=== PATIENT | female | born 1975 | race Caucasian/White ===

== ENCOUNTER → 2016-12-02 | Outpatient (CLI) | payer OTHER ==
--- NOTE | 2016-12-02 16:57 | RAD ---
Examination: Ultrasound kidneys history: History of renal stone. Comparison: None available Findings: The right kidney measures 12.2 x 5.1 x 1.4 cm. The left kidney measures 12.1 x 4.2 x 5.4 cm. No evidence of hydronephrosis. No obvious echogenicity identified to suggest intrarenal collecting system calculus in the bilateral kidneys. The urinary bladder is not well-distended Impression: No evidence of hydronephrosis. Unremarkable exam
--- NOTE | 2016-12-02 16:58 | RAD ---
Examination: 4 views of the skull History: History of right occipital lump pain. Fall Comparison: None available Findings No definite evidence of displaced fracture or lesion visualized on this skull radiograph. Impression: Unremarkable exam.
== END | disposition home or self-care (01) ==
LOC: US 16:29
PROVIDERS: ATTEND Psychiatry & Neurology Neurology
DX: N20.0 Calculus of kidney (principal); M89.8X9 Other specified disorders of bone, unspecified site
CPT/HCPCS: 70260; 76770

== ENCOUNTER 2017-05-05 14:47 | Emergency (ER) | payer OTHER ==
[~2017-05-05] VITALS: Ht 167.6 cm; Wt 104.3 kg
[2017-05-05 15:58] LABS: BASO # 0.1 x10^3/uL (0.0-0.2); BASO % 1 % (0-3); EOS % 2 % (0-3); HEMATOCRIT 41.9 % (36.0-47.0); HEMOGLOBIN 14.3 g/dL (12.0-15.5); LYMPH # 2.4 x10^3/uL (1.0-4.8); LYMPH % 24 % (24-48); MEAN CORPUSCULAR HEMOGLOBIN 32 pg (25-35); MEAN CORPUSCULAR HGB CONC 34 g/dL (31-37); MEAN CORPUSCULAR VOLUME 93 fL (79-100); MONO % 3 % (0-9); NEUT % 70 % (31-73); PLATELET COUNT 264 x10^3/uL (140-400); RED CELL DISTRIBUTION WIDTH 13.4 % (11.5-14.5); WHITE BLOOD COUNT 10.2 x10^3/uL (4.0-11.0)
[2017-05-05 16:07] LABS: BASE EXCESS COOX -2 mmol/L (-3-3); CARBON MONOXIDE 0.8 % (0.0-1.9); HCO3 COOX 22 mmol/L (21-28); METHEMOGLOBIN 0.3 % (0.0-1.9); OXYHEMOGLOBIN 93.7 %; PCO2 COOX 36 mmHg (35-46); PO2 COOX 72 mmHg (75-108); SAT O2 COOX 95 % (92-99)
[2017-05-05 16:10] LABS: FIO2 COOX 21
[2017-05-05 16:11] LABS: CALCIUM 8.7 mg/dL (8.5-10.1); GFR 60.5; POTASSIUM 4.2 mmol/L (3.5-5.1)
[2017-05-05 16:17] LABS: ALBUMIN 3.6 g/dL (3.4-5.0); ALBUMIN/GLOBULIN RATIO 0.9 (1.0-1.7); TOTAL BILIRUBIN 0.3 mg/dL (0.2-1.0); TOTAL PROTEIN 7.8 g/dL (6.4-8.2)
[2017-05-05 16:25] LABS: CKMB MASS < 0.5 ng/mL (0.0-3.6); CREATINE KINASE 52 U/L (26-192)
--- NOTE | 2017-05-05 16:25 | RAD ---
Indication shortness of air. Frontal and lateral views of the chest were obtained. No prior imaging of the chest is available. Heart size is at the upper limits of normal. There is prominence of the upper mediastinum. This may be secondary largely to patient body habitus. If mediastinal or great vessel pathology is clinically suspect a CT examination with contrast would be advised. There is no acute parenchymal infiltrate. Significant pleural fluid is not seen and there is no pneumothorax. There are some degenerative changes in the thoracic spine. IMPRESSION: A definite acute process in the chest is not seen. There is some widening of the upper mediastinum. This may be largely due to patient body habitus. If mediastinal or great vessel pathology is suspect a CT examination with contrast would be advised
[2017-05-05 16:30] VITALS: BP 105/63
--- NOTE | 2017-05-05 16:30 | PHYS DOC ---
Past Medical History Past Medical History: Asthma, GERD, Hypertension, Kidney Stone, Other Additional Past Medical Histor: PCOS, PULM EDEMA,INCREASED ICP,PVCs/PACs Past Surgical History: Hysterectomy, Other Additional Past Surgical Histo: GASTRIC BYPASS,HIATIAL HERNIA Alcohol Use: None Drug Use: None Adult General Chief Complaint Chief Complaint: ASTHMA HPI HPI Patient is a 42 year old female who presents ambulatory to the ED with the complaint of short of air. Patient states that she has had a long history of asthma. She is "really short of air" for about 2 weeks. She has a cough productive of phlegm which has more recently had some blood in it. Patient was seen 1-1/2 weeks ago by a nurse practitioner and her primary care doctor's office, she had a chest x-ray that was reported to be consistent with bronchitis. She was told that she has "asthma, sinus infection, bronchitis, and a URI.". She was started on Omnicef and a Medrol Dosepak. She does take nebulized up in next 1.25 every 4 hours, also takes Symbicort and may substitute pro-air inhaler for the nebulizer up next. She was not better in [address] Raymundo in the office and was switched to Levaquin 750 and put on a higher dose of prednisone, 2-20 mg for 3 days, 10 mg for 3 days, and 5 mg for 3 days. "But I still can't breathe". She states she has not gotten any better in the last 1-1/2 weeks with all of these interventions. Patient states that she was "supposed to be a direct admit" to the hospital here 2 days ago, but "they never called me with my bed assignment". It was her impression that her PCP was going to call Dr. Tate and make arrangements for her to be a direct admission. This was 2 days ago. 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 Her next shift to work would be tonight but she has already called in for that shift. She previously lived in [place] and had a story editor there. She is lived here for about 1 year and she does not have a story editor here yet. Patient states she had an episode of pulmonary edema in 2013 "but she was a lot heavier at that time. She lost 170 pounds after gastric bypass. PCP Dr. Raymundo at [facility] in [place] Patient takes metoprolol ER 25 mg every morning for intracranial hypertension, prescribed by Dr. Montanez. Review of Systems Review of Systems Constitutional: Denies fever or chills [] Eyes: Denies change in visual acuity, redness, or eye pain [] HENT: She states she has had Respiratory: As in history of present illness Cardiovascular: Denies chest pain GI: Denies abdominal pain, nausea, vomiting, bloody stools or diarrhea [] : Denies dysuria or hematuria [] Musculoskeletal: Denies back pain or joint pain [] Integument: Denies rash or skin lesions [] Neurologic: Denies headache, focal weakness or sensory changes [] Allergies Allergies Allergies Coded Allergies Type Severity Reaction Last Updated Verified Sulfa (Sulfonamide Antibiotics) Allergy Intermediate Rash 05/05/17 Yes moxifloxacin Allergy Intermediate Rash 05/05/17 Yes Physical Exam Physical Exam Constitutional: Well developed, well nourished, obese female, who had difficulty ambulating from the express area to room 23, she had to stop and sit down and was put in a wheelchair to go the rest of the way. Heart rate 82, pulse ox on room air 95%. HENT: Normocephalic, atraumatic, bilateral external ears normal, nose normal. [ ] Eyes: conjunctiva normal, no discharge. [] Neck: Normal range of motion, no stridor. [] Cardiovascular:Heart rate regular rhythm, no murmur , not tachycardic Lungs & Thorax: Bilateral breath sounds clear to auscultation, good air movement throughout, no wheezes, no rales, no prolongation of expiratory phase. Abdomen: Bowel sounds normal, soft, no tenderness, no masses, no pulsatile masses. [] Skin: Warm, dry, no erythema, no rash. [] Extremities: No tenderness, no cyanosis, no clubbing, ROM intact, no edema. [] Neurologic: Alert and oriented X 3, normal motor function, no focal deficits noted. [] Current Patient Data Vital Signs Vital Signs Date Time Temp Pulse Resp B/P (MAP) Pulse Ox O2 Delivery O2 Flow Rate FiO2 05/05/17 15:00 98.0 88 20 124/76 (92) 98 Room Air 98.0 Lab Values Laboratory Tests Test 05/05/17 15:43 05/05/17 15:45 O2 Saturation 95 % (92-99) Arterial Blood pH 7.40 (7.35-7.45) Arterial Blood pCO2 at Patient Temp 36 mmHg (35-46) Arterial Blood pO2 at Patient Temp 72 mmHg (75-108) L Arterial Blood HCO3 22 mmol/L (21-28) Arterial Blood Base Excess -2 mmol/L (-3-3) Oxyhemoglobin 93.7 % Methemoglobin 0.3 % (0.0-1.9) Carbon Monoxide, Quantitative 0.8 % (0.0-1.9) FiO2 21 White Blood Count 10.2 x10^3/uL (4.0-11.0) Red Blood Count 4.50 x10^6/uL (3.50-5.40) Hemoglobin 14.3 g/dL (12.0-15.5) Hematocrit 41.9 % (36.0-47.0) Mean Corpuscular Volume 93 fL (79-100) Mean Corpuscular Hemoglobin 32 pg (25-35) Mean Corpuscular Hemoglobin Concent 34 g/dL (31-37) Red Cell Distribution Width 13.4 % (11.5-14.5) Platelet Count 264 x10^3/uL (140-400) Neutrophils (%) (Auto) 70 % (31-73) Lymphocytes (%) (Auto) 24 % (24-48) Monocytes (%) (Auto) 3 % (0-9) Eosinophils (%) (Auto) 2 % (0-3) Basophils (%) (Auto) 1 % (0-3) Neutrophils # (Auto) 7.1 x10^3uL (1.8-7.7) Lymphocytes # (Auto) 2.4 x10^3/uL (1.0-4.8) Monocytes # (Auto) 0.3 x10^3/uL (0.0-1.1) Eosinophils # (Auto) 0.2 x10^3/uL (0.0-0.7) Basophils # (Auto) 0.1 x10^3/uL (0.0-0.2) D-Dimer (Rach) 0.31 ug/mlFEU (0.00-0.50) Sodium Level 140 mmol/L (136-145) Potassium Level 4.2 mmol/L (3.5-5.1) Chloride Level 105 mmol/L (98-107) Carbon Dioxide Level 26 mmol/L (21-32) Anion Gap 9 (6-14) Blood Urea Nitrogen 20 mg/dL (7-20) Creatinine 1.0 mg/dL (0.6-1.0) Estimated GFR (Cockcroft-Gault) 60.5 BUN/Creatinine Ratio 20 (6-20) Glucose Level 110 mg/dL (70-99) H Calcium Level 8.7 mg/dL (8.5-10.1) Total Bilirubin 0.3 mg/dL (0.2-1.0) Aspartate Amino Transferase (AST) 15 U/L (15-37) Alanine Aminotransferase (ALT) 31 U/L (14-59) Alkaline Phosphatase 89 U/L (46-116) Creatine Kinase 52 U/L (26-192) Creatine Kinase MB (Mass) < 0.5 ng/mL (0.0-3.6) Creatine Kinase MB Relative Index % (0-4) Troponin I Quantitative < 0.017 ng/mL (0.000-0.055) JH-Zzh-G-Type Natriuretic Peptide 92 pg/mL (0-124) Total Protein 7.8 g/dL (6.4-8.2) Albumin 3.6 g/dL (3.4-5.0) Albumin/Globulin Ratio 0.9 (1.0-1.7) L Laboratory Tests 05/05/17 15:45 Laboratory Tests 05/05/17 15:45 EKG EKG 12-lead EKG read by me. Sinus rhythm. Heart rate 71. There are no acute ST or T wave changes indicative of ischemia or infarction. No STEMI. No rhythm disturbance. 1555[] Radiology/Procedures Radiology/Procedures Two-view chest x-ray read by me. Heart size is normal. Lung pino are clear. The upper mediastinum is wide. The patient told me that she has a history of some type of superior vena cava abnormality that we will see on the chest x- ray. There is nothing acute on today's chest x-ray.[] Course & Med Decision Making Course & Med Decision Making Pertinent Labs and Imaging studies reviewed. (See chart for details) ABG on room air results: PH 7.41, PCO2 35.9, PaO2 71.6, sat 94.7%, carboxyhemoglobin 0.8%. 42-year-old female with a history of asthma presents with 1-1/2 weeks of continuing shortness of air, does not sound like this is worsening, but it has been consistent for one half weeks. She has had now 1-1/2 weeks of steroids and antibiotics. She does have Xopenex at home that she takes every 4 hours nebulized, and also has pro-air inhaler and Symbicort inhaler. I reassured the patient that her vitals are normal, with a heart rate of 82 and a pulse ox on room air 95%. The patient stated "I take metoprolol so 82 is actually tachycardic for me". The patient takes metoprolol 25 mg every morning. Vital signs, arterial blood gas on room air, two-view chest x-ray are all within normal limits here in the ED. I did reassure the patient. Patient rested comfortably in the ED, with stable vital signs at all times. I rechecked the patient. She was sitting comfortably on the cart, doing something on her phone. She had lots of questions which I answered. She is not dyspneic whatsoever. I believe the patient is stable for discharge. She was previously scheduled to work tonight and tomorrow night, she asked about when she should return to work. 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 After tomorrow night, her next shift is on Wednesday. We agreed that I hope she will be better in time to return to work next Wednesday. I gave her a note to be off tonight and tomorrow night. I told her usually when people are not improving with antibiotics for more than a week, I attribute this to the fact that there illness is most likely viral. I urged her to continue the previously planned interventions and rest until better. [] Dragon Disclaimer Dragon Disclaimer This electronic medical record was generated, in whole or in part, using a voice recognition dictation system. Departure Departure Impression: Primary Impression: Dyspnea Additional Impressions: Normal lungs on examination History of asthma Normal chest x-ray Disposition: HOME, SELF-CARE Condition: STABLE Referrals: MYRON RAYMUNDO (PCP) Patient Instructions: Asthma, Adult, [id number] Additional Instructions: As we discussed, continue the interventions that you currently are doing including nebulized Xopenex, steroid taper, fluids, rest. I gave you a [facility] brochure. Problem Qualifiers ELROY WALLER MD May 05, 2017 16:30
--- NOTE | 2017-05-06 06:32 | EKG ---
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
== END 2017-05-05 17:06 | disposition home or self-care (01) ==
LOC: ER 14:47
DX: R06.00 Dyspnea, unspecified (principal); R05 Cough; J45.909 Unspecified asthma, uncomplicated; K21.9 Gastro-esophageal reflux disease without esophagitis; I10 Essential (primary) hypertension; G93.2 Benign intracranial hypertension; E28.2 Polycystic ovarian syndrome; Z87.442 Personal history of urinary calculi; Z98.84 Bariatric surgery status; Z88.2 Allergy status to sulfonamides; Z79.899 Other long term (current) drug therapy; Z88.1 Allergy status to other antibiotic agents
CPT/HCPCS: 36415; 36600; 71020; 80053; 82553; 82805; 83880; 84484; 85025; 85379; 93005; 99285-25

== ENCOUNTER → 2018-09-30 | Outpatient (CLI) | payer OTHER ==
[~2018-09-30] MED LIST: ACET-704 PO; ALBU2.5V8 INH; BUDE10.2 IH; BUPR100T7 PO; CETI10TA22 PO; CYAN10005 PO; ESTR0.5T PO; FOLI1TAB16 PO; FURO-68 PO; MAGN500C10 PO; MELA10TA PO; METO-239 PO; OXYC1TAB19 PO; PANT20TA2 PO; PARO30TA45 PO; POTA20TA82 PO; RIZA10TA PO; TIZA4TAB8 PO; TRAZ-118 PO; XOPENEX1.25 MG/3 IH
--- NOTE | 2018-09-30 13:36 | KCIC ---
MR of the right shoulder HISTORY: Right shoulder pain. Limited range of motion after an injury July 2018. TECHNIQUE: Routine multiplanar sequences are obtained. Findings the medial clavicular joint is mildly degenerative. There is mild signal within the supraspinatus and infraspinatus tendon compatible with tendinosis. Small linear undersurface tear of the anterior supraspinatus tendon measures about 8 mm AP diameter. On coronal series 9, image 10 this crosses about two thirds of the tendon width. No large or full-thickness rotator cuff tear. Mild rotator cuff muscle volume loss. Subscapularis tendon is intact. Trace subdeltoid bursal fluid. No significant glenohumeral joint effusion. No evidence of labral tear or labral detachment. Biceps tendon is intact. No evidence of acute fracture or bone destruction. No acute soft tissue abnormality. IMPRESSION: Small linear undersurface rotator cuff tear of the anterior supraspinatus tendon. No full-thickness tear. Electronically signed by: Marcos Bahena MD (09/30/2018 1:33 PM) [facility]
== END | disposition home or self-care (01) ==
LOC: KCIC MRI 12:02
PROVIDERS: ATTEND Registered Nurse
DX: M75.101 Unspecified rotator cuff tear or rupture of right shoulder, not specified as traumatic (principal); Z90.710 Acquired absence of both cervix and uterus
CPT/HCPCS: 73221

== ENCOUNTER 2018-11-18 06:12 | Day surgery (SDC) | payer OTHER ==
[~2018-11-18] VITALS: Ht 165.1 cm; Wt 117.0 kg
[~2018-11-18 06:12] MED LIST changes: -OXYC1TAB19 PO
[2018-11-18] MEDS ORDERED: EPINEPHrine VIAL 30 MG/30 ML VIAL ONE (06:20)
[2018-11-18] MEDS ORDERED: ONDANSETRON PF 4 MG/2 ML VIAL. ONE (06:40)
[2018-11-18] MEDS ORDERED: LIDOCAINE 2% PF 5 ML VIAL. ONE (06:40)
[2018-11-18] MEDS ORDERED: PROPOFOL 20 ML IV ONE ×2 (06:40→09:11)
[2018-11-18] MEDS ORDERED: ROCURONIUM 50 MG/5 ML VIAL. ONE (06:40)
[2018-11-18] MEDS ORDERED: DEXAMETHASONE SOD PHOS 4 MG/ML VIAL ONE (06:40)
[2018-11-18] MEDS ORDERED: PROCHLORPERAZINE 10 MG/2 ML VIAL. IV PRN (07:00)
[2018-11-18] MEDS ORDERED: IV RINGERS,LACTATED 1000ML 1,000 ML IV SCH (07:00)
[2018-11-18] MEDS ORDERED: ceFAZolin 2GM PREMIX 2 GM/50 ML BAG IV ONE (07:00)
[2018-11-18] MEDS ORDERED: ONDANSETRON PF 4 MG/2 ML VIAL. IV PRN (07:00)
[2018-11-18] MEDS ORDERED: fentaNYL PF VIAL 100 MCG/2 ML VIAL IV PRN (07:00)
[2018-11-18] MEDS ORDERED: HYDROmorphone 2 MG/ML VIAL IV PRN (07:00)
[2018-11-18] MEDS ORDERED: SCOPOLAMINE 1.5MG PATCH. TD ONE (07:00)
[2018-11-18] MEDS ORDERED: LIDOCAINE 1% PF 2 ML VIAL. ID PRN (07:00)
[2018-11-18] MEDS ORDERED: MIDAZOLAM HCL/PF 2 MG/2 ML VIAL. ONE ×2 (07:10→07:24)
[2018-11-18] MEDS ORDERED: ROPIVacaine 0.5% PF 20 ML VIAL. ONE (07:10)
[2018-11-18] MEDS ORDERED: fentaNYL PF VIAL 100 MCG/2 ML VIAL ONE (07:24)
[2018-11-18] MEDS ORDERED: NEOSTIGMINE METHYLSULFATE 5 MG/5 ML SYRINGE. ONE (08:13)
[2018-11-18] MEDS ORDERED: GLYCOPYRROLATE 1 MG/5 ML VIAL. ONE (08:13)
[2018-11-18] MEDS ORDERED: ePHEDrine PF IN SALINE 50 MG/10 ML SYRINGE. IV ONE (08:13)
[2018-11-18] MEDS ORDERED: SEVOFLURANE 61 TO 120 MINUTES. IH ONE (08:24)
[2018-11-18] MEDS ORDERED: OXYC1TAB19 PO (09:39)
--- NOTE | 2018-11-18 09:41 | DISCH ---
DISCHARGE INSTRUCTIONS Condition on Discharge Condition on Discharge: Stable Activity After Discharge Activity Instructions for Disc: Other, see below (May remove sling when arm wakes up from the block, advance activity as tolerated starting with fine motor use) Weight Bearing Status after Di: As tolerated Diet after Discharge Diet after Discharge: Regular Wound Incision Care Wound/Incision Care: Change dressing (remove dressing in 2 days may then shower no soaking until sutures out) Community/Resources/Services Services at Discharge: PT EVALUATE & TREAT (active passive range of motion advancing the strengthening as tolerated no restrictions other than symptomatic limitation) Contacting the after DC Call your doctor for: Concerns you may have Follow-Up Follow up with: Dr. Mcgee 10 days LEEANNA MCGEE MD November 18, 2018 09:41
[2018-11-18] MEDS: fentaNYL PF VIAL 100 MCG/2 ML VIAL IV PRN ×2 (09:50→10:05)
[2018-11-18] MEDS ORDERED: IPRATRPIUM/ALBUTEROL 0.5/2.5MG 3 ML NEBU. ONE (09:57)
[2018-11-18] MEDS ORDERED: IPRATRPIUM/ALBUTEROL 0.5/2.5MG 3 ML NEBU. NEB ONE (10:00)
[2018-11-18] MEDS ORDERED: oxyCODONE/APAP 7.5/325 1 TAB TABLET PO ONE (10:00)
[2018-11-18] MEDS: MORPHINE SULFATE 2 MG/ML VIAL. IV PRN ×2 (10:01→10:13)
[2018-11-18 10:30] VITALS: BP 104/70
--- NOTE | 2018-11-18 13:30 | PDOC4 ---
Operative Note Operative Note Date of surgery: 11/18/2018 Preoperative diagnosis: Superior labral tear and acromioclavicular joint pain and contusion Postoperative diagnosis: Type 1 SLAP tear, acromioclavicular degenerative change with contusion and subacromial impingement with minimal thickness partial bursal sided rotator cuff tear Operative procedure: Right shoulder arthroscopy with Debridement of superior labrum and rotator cuff, subacromial decompression distal clavicle excision Anesthesia: Gen. plus scalene block Surgeon: Arely Competitions: None Operative indications: Please see my detailed preoperative clinic evaluation for operative indications. I had gone over with her MRI findings of superior labral tear and the possibility of repair debridement or biceps tenodesis recommendation for distal clavicle excision based on her ongoing pain and at dressing any other pathologic conditions is appropriate. All her questions were answered she is aware of the prolonged recovery period from shoulder surgery the possibility of continued pain infection nerve or blood vessel damage medical or other anesthetic complications among others and she wished to proceed with surgical evaluation and treatment. Operative text: A she was identified procedure verified patient placed in the supine position on the operating table. After adequate amounts of general a nesthesia plus a pre-existing scalene block were obtained she was placed decubitus position right side up all bony prominences were well-padded and the right shoulder was examined under anesthesia found to have full range of motion no instability. The right upper extremity was then prepped and draped in standard sterile fashion placed in the arthroscopic arm hassan with a total of 10 pounds of traction and after timeout was performed patient procedure identified and verified standard posterior portal was established an anterior portal established using spinal needle localization and the shoulder joint was systematically examined. She was noted to have a severe type I SLAP tear and after debridement was carried out to stable tissue the remainder of the biceps insertion and biceps tendon itself was noted to be free from compromise or fraying. No peelback lesion was noted she did have some irritation along the undersurface of the supraspinatus but only minimal joint sided involvement not requiring repair subscapularis insertion was noted to be intact as were the remainder of the capsule ligament structures and glenohumeral joint. Subacromial space was then entered bursa was cleared to allow visualization she did have a large anterior acromial spur and a partial bursal sided supraspinatus tear that required only light debridement in no repair. The anterior acromial spur was converted to a type I acromion using cutting block technique with an arthroscopic bur distal clavicle was excised to 1 cm preserving the overlying joint capsule for stability and ensuring complete resection of the joint. Any bony fragments were removed with arthroscopic shaver and the rotator cuff again examined throughout degrees of internal/external rotation arthroscope was withdrawn joint drained of arthroscopic fluid portals closed with nylon suture sterile dressings were applied she was placed in a sling returned to recovery room in stable condition having tolerated procedure well LEEANNA AU MD November 18, 2018 13:30
== END 2018-11-18 10:50 | disposition home or self-care (01) ==
LOC: SURG 06:12
PROVIDERS: ATTEND Orthopaedic Surgery
DX: S43.431A Superior glenoid labrum lesion of right shoulder, initial encounter (principal); S46.011A Strain of muscle(s) and tendon(s) of the rotator cuff of right shoulder, initial encounter; M75.41 Impingement syndrome of right shoulder; J45.50 Severe persistent asthma, uncomplicated; E28.2 Polycystic ovarian syndrome; F32.9 Major depressive disorder, single episode, unspecified; M19.90 Unspecified osteoarthritis, unspecified site; G43.809 Other migraine, not intractable, without status migrainosus; K21.9 Gastro-esophageal reflux disease without esophagitis; Z87.19 Personal history of other diseases of the digestive system; Z90.49 Acquired absence of other specified parts of digestive tract; Z98.890 Other specified postprocedural states; Z98.84 Bariatric surgery status; Z79.899 Other long term (current) drug therapy; Z88.2 Allergy status to sulfonamides; Z88.1 Allergy status to other antibiotic agents; Z88.8 Allergy status to other drugs, medicaments and biological substances; X58.XXXA Exposure to other specified factors, initial encounter; Y93.89 Activity, other specified; Y92.89 Other specified places as the place of occurrence of the external cause; Y99.8 Other external cause status
CPT/HCPCS: 29823; 29824; 94640; A7015; C1713; J0171; J0696; J1100; J2001; J2250; J2270; J2405; J2704; J2710; J2795; J3010; J3490; J7120; J7620

== ENCOUNTER → 2020-01-18 | Outpatient (CLI) | payer OTHER ==
[~2020-01-18] MED LIST changes: -CETI10TA22 PO; +CETI10TA74 PO; +CYAN-25 PO; -CYAN10005 PO; +OXYC1TAB19 PO; +POTA20TA4 PO; -POTA20TA82 PO
--- NOTE | 2020-01-18 11:08 | CARD ---
MR#: [id number] Date of Study: 01/18/2020 Ordering Physician: MEERA MCCLELLAND, Referring Physician: MEERA MCCLELLAND, Tech: Sarika Anna APPROVED REPORT EXAM: Two-dimensional and M-mode echocardiogram with Doppler and color Doppler. Other Information Quality : AverageHR: 60bpm Technically limited study due to body habitus. INDICATION LV Function:Diastolic Venous Insufficiency RISK FACTORS Asthma 2D DIMENSIONS RVDd3.3 (2.9-3.5cm)Left Atrium(2D)3.9 (1.6-4.0cm) IVSd1.1 (0.7-1.1cm)Aortic Root(2D)2.9 (2.0-3.7cm) LVDd5.1 (3.9-5.9cm)LVOT Diameter2.0 (1.8-2.4cm) PWd1.1 (0.7-1.1cm)LVDs3.2 (2.5-4.0cm) FS (%) 36.5 %SV81.9 ml LVEF(%)65.9 (>50%) Aortic Valve AoV Peak Santy.199.4cm/sAoV VTI39.3cm AO Peak GR.15.9mmHgLVOT Peak Santy.94.4cm/s LVOT VTI 21.02cmAO Mean GR.6mmHg GUS (VMAX)1.83pu6LOG (VTI)1.64cm2 AI P 1/2 Rydz465uv Mitral Valve MV E Sgjsedlg295.5cm/sMV DECEL QXVB079fs MV A Qtmxyhqe421.6cm/sMV E Mean Gr.3mmHg MV KNO73pvU/A Ratio1.1 MVA (PHT)2.99cm2 TDI E/Lateral E'14.2E/Medial E'16.1 Pulmonary Valve PV Peak Shqabidr60.1cm/sPV Peak Grad.4mmHg Tricuspid Valve TR P. Qankhalh890tl/sRAP SDGDFYBG6wdEy TR Peak Gr.15hdKjHOXF69niWh Pulmonary Vein S1 Gatwvsrw41.8cm/sD2 Gfeeabxq48.4cm/s PVa [id number] LEFT VENTRICLE The left ventricle is normal size. There is borderline concentric left ventricular hypertrophy. The l eft ventricular systolic function is normal. The Ejection Fraction is 55-60%. There is normal LV segm ental wall motion. Transmitral Doppler flow pattern is Grade II-pseudonormal filling dynamics. RIGHT VENTRICLE The right ventricle is normal size. There is normal right ventricular wall thickness. The right ventr icular systolic function is normal. ATRIA The left atrium size is normal. The right atrium size is normal. The interatrial septum is intact wit h no evidence for an atrial septal defect or patent foramen ovale as noted on 2-D or Doppler imaging. AORTIC VALVE The aortic valve is normal in structure and function. Doppler and Color Flow revealed mild aortic reg urgitation. Calculated aortic valve area is 1.71 cm2 with maximum pressure gradient of 12 mmHg and me an pressure gradient of 7 mmHg. MITRAL VALVE The mitral valve is normal in structure and function. A borderline mitral valve prolapse is present. There is no mitral valve stenosis. Doppler and Color-flow revealed trace mitral regurgitation. TRICUSPID VALVE The tricuspid valve is normal in structure and function. Doppler and Color Flow revealed trace tricus pid regurgitation with an estimated PAP of 41 mmHg. There is no tricuspid valve stenosis. PULMONIC VALVE The pulmonic valve is not well visualized. Doppler and Color Flow revealed trace pulmonic valvular re gurgitation. GREAT VESSELS The aortic root is normal in size. The ascending aorta is normal in size. The IVC is normal in size a nd collapses >50% with inspiration. PERICARDIAL EFFUSION There is no evidence of significant pericardial effusion. Critical Notification Critical Value: No <Conclusion> The left ventricular systolic function is normal. The Ejection Fraction is 55-60%. There is normal LV segmental wall motion. Transmitral Doppler flow pattern is Grade II-pseudonormal filling dynamics. Mild aortic regurgitation. Trace mitral regurgitation. Trace tricuspid regurgitation with an estimated PAP of 41 mmHg. There is no evidence of significant pericardial effusion. Signed by : Jamil Key, Electronically Approved : 01/18/2020 11:07:51
--- NOTE | 2020-01-18 12:41 | RAD ---
MR#: [id number] Date of Study: 01/18/2020 Ordering Physician: MEERA MCCLELLAND, Referring Physician: MEERA MCCLELLAND, Tech: Juan Francisco Barrera MBA, RDMS, RVT, RDCS, RTR APPROVED REPORT Patient Location : OUT-PATIENT Indications venous insufficiency Findings Grayscale images of the bilateral greater saphenous veins and lesser saphenous veins demonstrate prio r ablation without any obvious evidence of reflux in the residual remnant veins. There are bilateral varicose veins in the thighs and the calves noted with 1 cryptographic center specialist on the right and left side witho ut significant reflux. Critical Notification Critical Value: No <Conclusion> 1. Prior bilateral GSV/LSV ablation with isolated varicose veins and not evidence of reflux. Signed by : Meera Mcclelland, Electronically Approved : 01/18/2020 12:41:05
== END | disposition home or self-care (01) ==
LOC: US 09:03
PROVIDERS: ATTEND Internal Medicine Cardiovascular Disease
DX: I35.1 Nonrheumatic aortic (valve) insufficiency (principal); I87.2 Venous insufficiency (chronic) (peripheral); I83.93 Asymptomatic varicose veins of bilateral lower extremities
CPT/HCPCS: 93306; 93970

== ENCOUNTER → 2020-06-19 | Outpatient (CLI) | payer OTHER ==
[~2020-06-19] MED LIST changes: +GADOTERATE 7.5 MMOL/15ML VIAL. IVP ONE; +MEPO100V SQ; +PROP10TA PO
--- NOTE | 2020-06-19 11:57 | KCIC ---
MRI right hip without and with contrast Contrast: 24 mL Clariscan gadolinium intravenous contrast. HISTORY: Right hip pain. Right leg numbness. History of MRSA in 2015. FINDINGS: No joint effusion. No bone edema, fracture or changes of osteonecrosis. Mild changes of osteoarthritis with cartilage thinning resulting in joint space narrowing and mild spurring of the acetabulum. No fluid-filled labral tear evident. There is tendinous edema and enhancement of the gluteus minimus tendon insertion at the femoral greater trochanter consistent with tendinopathy. There is overlying 1 subcentimeter thin linear focus of fluid with surrounding contrast enhancement lateral of the greater trochanter which may represent a small focus of bursitis adjacent of the tendinopathy edema/enhancement. There is no underlying bony edema of the trochanteric femur. Hamstring tendon origin intact. Rectus femoris tendon origin intact. Iliopsoas tendon insertion intact. IMPRESSION: 1. No acute osseous injury of the right hip. 2. Gluteus minimus tendinopathy with intratendinous edema and enhancement. No evidence of a tendon tear. 3. 1 cm focus of fluid with surrounding enhancement of the trochanteric bursa lateral of the femoral greater trochanter, could indicate bursitis. Electronically signed by: Waqar Springer MD (06/19/2020 11:54 AM) [facility]
--- NOTE | 2020-06-19 12:36 | KCIC ---
LUMBAR SPINE WO CONTRAST History: Reason: RIGHT LUMBAR RADICULOPATHY / Spl. Instructions: / History: Right hip pain into RLE with numbness. Technique: Multiplanar, multi sequential MR imaging was performed of the lumbar spine. Comparison: None Findings: Normal vertebral body height and alignment. No fracture. Conus terminates normally. No evidence of nerve root clumping within the thecal sac. L1-L2: Right central disc protrusion. Mild facet arthropathy. No canal or neuroforaminal narrowing. L2-L3: Small disc bulge. Mild facet arthropathy. No canal or neuroforaminal narrowing. L3-L4: Small disc bulge. Mild facet arthropathy. No canal or neuroforaminal narrowing. L4-5: Central disc protrusion. Slight abutment of the descending L5 nerve roots. No canal narrowing. Moderate facet arthropathy. No neuroforaminal narrowing. L5-S1: Central disc protrusion. No canal narrowing. Moderate facet arthropathy. No neuroforaminal narrowing. Impression: 1. Multilevel lumbar spondylosis. 2. L4-5 subarticular recess narrowing with slight abutment of the descending L5 nerve roots. Correlate for radiculopathy. Electronically signed by: Aman Mccullough DO (06/19/2020 12:33 PM) [id number]
== END ==
LOC: KCIC MRI 08:43
PROVIDERS: ATTEND Orthopaedic Surgery
DX: M47.27 Other spondylosis with radiculopathy, lumbosacral region (principal); M51.26 Other intervertebral disc displacement, lumbar region
CPT/HCPCS: 72148; 73723; A9575

== ENCOUNTER → 2020-07-29 | Outpatient (CLI) | payer OTHER ==
[~2020-07-29] MED LIST changes: -GADOTERATE 7.5 MMOL/15ML VIAL. IVP ONE; +LIDOCAINE 1% Multi-Dose 20 ML VIAL. INJ ONE; +LIDOCAINE 1% Multi-Dose 20 ML VIAL. ONE; +TRIAMCINOLONE ACETONIDE 40 MG/ML VIAL. IM ONE
--- NOTE | 2020-07-29 11:38 | RAD ---
ULTRASOUND GUIDED RIGHT GLUTEUS MINIMUS PERITENDINOUS THERAPEUTIC INJECTION INDICATION: The patient is a 45 years year old Female who presented with right gluteus minimus inser tional tendinosis. CONSENT: The risks, benefits, treatment options, potential complications and personnel to be involve d were discussed (including the instruments to be used, contrast and anesthesia administration) with the patient. All questions were answered and consent was obtained. The patient indicated willingness to proceed. GENERAL: a) Medication Reconciliation: The patient's medications and allergies were reviewed in the [facility] medical record and reconciled to the proposed procedure/treatment. b) Positioning: The patient was placed left lateral decubitus on the Ultrasound table. c) Ultrasound guidance was used to target the tendon. The lateral hip was then sterilely prepped and draped. Ultrasound images were saved and sent to a permanent archive. d) Time Out: A time out was performed immediately prior to procedure start, correctly identifying th e patient name, date of , procedure, anatomy (including marking of site and side), patient posit ion, procedure consent form, relevant diagnostic and radiology test results, antibiotic administratio n, safety precautions, and procedure-specific equipment needs. Procedure Start Time / Timeout Time: 08:50 e) Anesthesia Type: Local anesthesia: 10 mL 1% Lidocaine PRE-PROCEDURE IMAGING: Right gluteus minimus insertional tendinosis and subgluteus minimus bursal di stention PROCEDURE: a) Procedure Details: A 22g spinal needle was inserted adjacent to the tendon using ultrasound anshul nce. 1% lidocaine and 1 mL of injectate were administered adjacent to the tendon. The needle was rem zenaida. Images were stored to the digital archive documenting needle position. b) Injectate Contents: 1 mL Triamcinolone Acetonide (Kenalog) 40mg/ml c) Estimated Blood Loss: 0 mL POST PROCEDURE: a) Hemostasis: Hemostasis was achieved using light manual compression. b) Procedure End Time: 09:00 c) Conclusion: 1. Post-Procedure instructions:Verbal instructions were given. 2. The patient was discharged from the radiology department in stable condition. COMPLICATIONS: a) Significant Patient Complication: None If other, explain: b) Complications during the procedure: None If other, explain: RESULTS: Medication was injected adjacent to the tendon. IMPRESSION: SUCCESSFUL ULTRASOUND GUIDED PERITENDINOUS THERAPEUTIC INJECTION OF THE RIGHT GLUTEUS MIN IMUS TENDON DESCRIBED ABOVE. Electronically signed by: Anand Phan DO (07/29/2020 11:36 AM) [id number]
== END | disposition home or self-care (01) ==
LOC: US 08:23
PROVIDERS: ATTEND Orthopaedic Surgery
DX: M25.551 Pain in right hip (principal); K21.9 Gastro-esophageal reflux disease without esophagitis; J45.909 Unspecified asthma, uncomplicated; M19.90 Unspecified osteoarthritis, unspecified site; F32.9 Major depressive disorder, single episode, unspecified; Z90.49 Acquired absence of other specified parts of digestive tract; Z90.710 Acquired absence of both cervix and uterus; Z98.890 Other specified postprocedural states; Z79.899 Other long term (current) drug therapy; Z88.2 Allergy status to sulfonamides; Z88.1 Allergy status to other antibiotic agents; Z88.8 Allergy status to other drugs, medicaments and biological substances
CPT/HCPCS: 20611

== ENCOUNTER → 2021-01-08 | Outpatient (CLI) | payer OTHER ==
[~2021-01-08] MED LIST changes: -LIDOCAINE 1% Multi-Dose 20 ML VIAL. INJ ONE; -LIDOCAINE 1% Multi-Dose 20 ML VIAL. ONE; -TRIAMCINOLONE ACETONIDE 40 MG/ML VIAL. IM ONE
--- NOTE | 2021-01-09 08:37 | RAD ---
DATE: 01/08/2021 EXAM: MG BILAT SCREEN+JULES HISTORY: Screening. History of breast reduction in 2002. COMPARISON: None. Prior images done over 6 years ago in [place] and are unavailable. Baseline exam. This study was interpreted with the benefit of Computerized Aided Detection (CAD). FINDINGS: The breast parenchyma shows scattered fibroglandular densities. There are no dominant suspicious mas ses, suspicious microcalcifications or evidence of architectural distortion. There are scattered bila teral benign calcifications. IMPRESSION: No evidence of malignancy. BI-RADS CATEGORY: 1 NEGATIVE RECOMMENDED FOLLOW-UP: 12M 12 MONTH FOLLOW-UP PQRS compliance statement: Patient information was entered into a reminder system with a target due d ate for the next mammogram. Mammography is a sensitive method for finding small breast cancers, but it does not detect them all a nd is not a substitute for careful clinical examination. A negative mammogram does not negate a clin ically suspicious finding and should not result in delay in biopsying a clinically suspicious abnorma lity. "Our facility is accredited by the [employer] Mammography Program." Electronically signed by: Zayda Hernandez MD (01/09/2021 8:35 AM) [id number]
== END ==
LOC: MAMMO 10:32
PROVIDERS: ATTEND Family Medicine
DX: Z12.31 Encounter for screening mammogram for malignant neoplasm of breast (principal)
CPT/HCPCS: 77063; 77067

== ENCOUNTER → 2021-02-03 | Outpatient (CLI) | payer OTHER ==
--- NOTE | 2021-02-03 11:49 | KCIC ---
MRI of the lumbar spine without contrast 02/03/2021 CLINICAL HISTORY: Chronic low back pain. Worsening right-sided pain which radiates down the right hip . Bilateral leg weakness. TECHNIQUE: Unenhanced T1-weighted and T2-weighted sagittal and axial and inversion recovery sagittal images of the lumbar spine were obtained. FINDINGS: Comparison study is dated 06/19/2020. Very mild S-shaped curvature of the thoracolumbar spine is seen. Degenerative signal changes and vary ing loss of height are seen involving all the disks of the lumbar spine. Degenerative signal changes are seen within the marrow surrounding these discs. The conus medullaris is normal morphology, positi on, and signal characteristics. A 9 mm rounded high signal intensity lesion is seen involving the mid pole of the left kidney on the T2-weighted images. This likely represents a cyst. No further imaging evaluation is recommended. At the L1-2 disc space there is a mild generalized disc bulge. Superimposed on this disc bulge is a r ight paracentral focal disc protrusion. This measures 3 mm in AP diameter. Degenerative changes are s een involving the facet joints bilaterally. There are small facet joint effusions bilaterally. There is mild ligamentum flavum hypertrophy bilaterally. These findings when combined do not result in sign ificant central spinal canal or neural foraminal stenosis. At the L2-3 and L3-4 disc spaces there are mild generalized disc bulges. Degenerative changes are see n involving the facet joints bilaterally. There is mild ligamentum flavum hypertrophy bilaterally. Th ere are small facet joint effusions bilaterally. These findings when combined do not result in signif icant central spinal canal or neural foraminal stenosis. At the L4-5 disc space there is a mild generalized disc bulge. Superimposed on this disc bulge is a f ocal central disc protrusion. This measures 3 mm in AP diameter. Degenerative changes are seen involv ing the facet joints bilaterally. There is mild to moderate ligamentum flavum hypertrophy bilaterally . These findings when combined result in mild central spinal canal stenosis. No neural foraminal sten osis is seen. At the L5-S1 disc space there is a mild generalized disc bulge. Superimposed on this disc bulge is a focal central disc protrusion. This measures 3 mm in AP diameter. Degenerative changes are seen invol ving the facet joints bilaterally. These findings do not result in significant central spinal canal o r neural foraminal stenosis. Since the previous examination there has been no significant interval change. IMPRESSION: The changes of degenerative disc disease are seen throughout the lumbar spine. These find ings result in mild central spinal canal stenosis at L4-5. No neural foraminal stenosis is seen. Electronically signed by: Aurelio Mills MD (02/03/2021 11:47 AM) [id number]
== END ==
LOC: KCIC MRI 10:01
PROVIDERS: ATTEND Family Medicine
DX: M51.16 Intervertebral disc disorders with radiculopathy, lumbar region (principal); M47.27 Other spondylosis with radiculopathy, lumbosacral region; M48.061 Spinal stenosis, lumbar region without neurogenic claudication
CPT/HCPCS: 72148

== ENCOUNTER → 2021-05-12 | Outpatient (CLI) | payer OTHER ==
[~2021-05-12] MED LIST changes: +GADOTERATE 7.5 MMOL/15ML VIAL. IVP ONE
--- NOTE | 2021-05-12 13:49 | KCIC ---
EXAM: Brain MRI with and without contrast. HISTORY: Pseudotumor. Headache. TECHNIQUE: Multiplanar, multisequence magnetic resonance imaging of the brain was performed prior to and following the administration of intravenous contrast. COMPARISON: None. FINDINGS: There is no restricted diffusion to suggest acute or subacute infarction. There is no susce ptibility effect to suggest hemorrhage. There is no mass effect or midline shift. There is no hydroce phalus. There are a few tiny foci of T2 such FLAIR hyperintensity within the bilateral frontal white matter. There is minimal inferior maxillary sinus mucosal thickening. The mastoid air cells are clear. There are normal flow voids within the cerebral vessels. There is a mildly expanded empty or partially empt y sella. There is no suspicious enhancing lesion. The optic nerve sheaths are not well assessed due t o motion. IMPRESSION: 1. Expanded empty or partially empty sella. This can be seen with the reported history of intracrania l hypertension. 2. Few tiny foci of signal change within the cerebral white matter, a nonspecific finding which can b e seen with chronic small vessel disease and chronic migraine headaches. The imaging appearance does not favor changes due to demyelinating disease. Electronically signed by: Cristiane Rodriguez MD (05/12/2021 1:47 PM) [id number]
== END ==
LOC: KCIC MRI 12:37
PROVIDERS: ATTEND Psychiatry & Neurology Neurology
DX: D49.6 Neoplasm of unspecified behavior of brain (principal); R51.9 Headache, unspecified
CPT/HCPCS: 70553; A9575

== ENCOUNTER → 2021-05-21 | Outpatient (CLI) | payer OTHER ==
[~2021-05-21] MED LIST changes: -GADOTERATE 7.5 MMOL/15ML VIAL. IVP ONE
[2021-05-21] MEDS: LIDOCAINE 1% Multi-Dose 20 ML VIAL. INJ ONE (07:15)
[2021-05-21 10:52] VITALS: BP 107/57
[2021-05-21 11:18] VITALS: BP 105/64
[2021-05-21 11:24] LABS: CSF CLARITY CLEAR; CSF COLOR COLORLESS; CSF RBC COUNT 0 /cmm (Not Established); CSF WBC COUNT 0 /cmm (Not Established)
[2021-05-21 11:26] VITALS: BP 111/62
[2021-05-21 11:33] LABS: CSF PROTEIN 26.8 mg/dL (15.0-45.0)
--- NOTE | 2021-05-21 12:31 | RAD ---
Exam: Fluoroscopically guided lumbar puncture. Date:05/21/2021 9:25 AM Indication: Idiopathic intracranial hypertension Comparisons: MR lumbar spine 02/03/2021. Technique: The procedure, including risks, benefits and potential complications were explained to the patient in detail. Potential complications include, but are not exclusive to pain, bleeding, infecti on, headache, and CSF leak. The patient stated they understood the procedure. Both written and verbal consent were obtained. A lateral view of the lumbar spine was obtained. The patient was placed in a prone position on the al uoroscopy table and the L2-L3 level was marked, prepped, and draped in standard sterile fashion. A t imeout was performed according to departmental protocol. 1% lidocaine was administered for local anes thetic. Under fluoroscopic guidance, a 20-gauge 3-1/2 inch spinal needle was carefully advanced into the thecal sac until clear CSF was returned. 25.5 mL of clear CSF was collected, placed in 4 sterile vials, and sent to the laboratory for analysi s. Opening and closing pressures were obtained in the prone position with the length of the needle in centimeters added to the manometer measurement. Opening pressure: 24 cm H2O Closing pressure: 9 cm H2O The needle was removed with the stylet in place. The patient's back was cleansed with alcohol and a B and-Aid placed over the puncture site. The patient tolerated the procedure well without local complic ations and was transferred to the recovery area for postprocedural monitoring. Fluoroscopy time was approximately: 0.8 minutes, 48 mGy. IMPRESSION: 1. Technically successful lumbar puncture with removal of 25.5 mL clear CSF. 2. Opening pressure: 24 cm H2O 3. Closing pressure: 9 cm H2O Electronically signed by: Zayda Hernandez MD (05/21/2021 12:29 PM) [id number]
== END | disposition home or self-care (01) ==
LOC: RAD 09:13
PROVIDERS: ATTEND Psychiatry & Neurology Neurology
DX: G93.2 Benign intracranial hypertension (principal); I10 Essential (primary) hypertension; K21.9 Gastro-esophageal reflux disease without esophagitis; M19.90 Unspecified osteoarthritis, unspecified site; F32.9 Major depressive disorder, single episode, unspecified; Z90.49 Acquired absence of other specified parts of digestive tract; Z90.710 Acquired absence of both cervix and uterus; Z98.890 Other specified postprocedural states; Z88.1 Allergy status to other antibiotic agents; Z88.2 Allergy status to sulfonamides; Z88.8 Allergy status to other drugs, medicaments and biological substances; Z79.899 Other long term (current) drug therapy
CPT/HCPCS: 62270; 62328; 82945; 84157; 89051; J3490